=== PATIENT | female | born 2000 ===

== ENCOUNTER 2019-01-25 18:43 | Emergency (ER) | payer SELFPAY ==
[2019-01-25 18:56] VITALS: BMI 29.2
[2019-01-25 18:58] VITALS: RESP 20; O2SAT 100
--- NOTE | 2019-01-25 20:43 | C.PDOC ---
History Of Present Illness 18 y/o female c/o epigastric pain after vomiting today orange juice. pt sts she has had some diarrhea over last 2 days. had subjective fever. pt's younger sister with same. no recent travel. Time Seen by Provider: 01/25/19 19:55 Chief Complaint (Nursing): GI Problem History Per: Patient History/Exam Limitations: no limitations Onset/Duration Of Symptoms: Days (2) Current Symptoms Are (Timing): Still Present Severity: Mild Location Of Pain/Discomfort: Epigastric Radiation Of Pain To:: None Quality Of Discomfort: "Pain" Associated Symptoms: Fever (subjective), Vomiting, Diarrhea Last Bowel Movement: Today Last Menstral Period: 12/30/18 Past Medical History Reviewed: Historical Data, Nursing Documentation, Vital Signs Vital Signs: Last Vital Signs Temp 98.5 F 01/25/19 18:56 Pulse 101 H 01/25/19 18:56 Resp 20 01/25/19 18:56 BP 122/83 01/25/19 18:56 Pulse Ox 100 01/25/19 18:56 - Medical History PMH: Asthma, Gastritis Surgical History: No Surg Hx Family History: States: Unknown Family Hx - Social History Hx Alcohol Use: No Hx Substance Use: No - Immunization History Hx Tetanus Toxoid Vaccination: No Hx Influenza Vaccination: No Hx Pneumococcal Vaccination: No Review Of Systems Constitutional: Positive for: Fever (subjective) ENT: Negative for: Throat Pain Cardiovascular: Negative for: Chest Pain Respiratory: Negative for: Cough Gastrointestinal: Positive for: Vomiting, Abdominal Pain, Diarrhea. Negative for: Nausea Genitourinary: Negative for: Dysuria, Vaginal Bleeding Musculoskeletal: Negative for: Back Pain Physical Exam - Physical Exam Appears: Non-toxic, No Acute Distress Skin: Warm, Dry Head: Atraumatic, Normacephalic Eye(s): bilateral: Normal Inspection Neck: Supple Chest: No Tenderness Cardiovascular: Rhythm Regular, No Murmur Respiratory: No Decreased Breath Sounds, No Accessory Muscle Use, No Rales, No Rhonchi, No Wheezing Gastrointestinal/Abdominal: Bowel Sounds, Soft, Tenderness (mild. epigastric area), No Distention, No Guarding, No Rebound Back: No CVA Tenderness Neurological/Psych: Oriented x3, Normal Speech, Normal Cognition ED Course And Treatment O2 Sat by Pulse Oximetry: 100 Medical Decision Making Medical Decision Making: mild epigastric pain with 2 days vomiting and diarrhea. mucosa moist. poc, Maalox. po challenge. pt vomitied after po challenge. zofran given. no tolerates po fluids. reports abdominal pain resolved. re=-exam- soft,. nd, nt. d/c hoe with zofran Disposition Counseled Patient/Family Regarding: Studies Performed, Diagnosis, Need For Followup, Rx Given - Disposition Referrals: [facility] [Outside] [facility] [Outside] Disposition: HOME/ ROUTINE Disposition Time: 21:51 Condition: GOOD Additional Instructions: Tracey agua aumentada y otros fluidos david. Come arroz simple, pur de manzana. Brindis. galletas con hambre. Girard ondansetrn antes de las comidas si tiene nauseas. Seguimiento en la clnica en pocos pemberton. Drink increased water and other clear fluids. Eat plain rice, applesauce. toast. crackers if hungry. Take ondansetron before meals if nauseous. FOllow up in clinic in a few days. Prescriptions: Ondansetron ODT [Zofran ODT] 4 mg PO TID #12 odt Instructions: Viral Gastroenteritis, Child (DC) Forms: Gen Discharge Inst [place], [employer] [facility] ([facility]riac), School Excuse - Clinical Impression Clinical Impression: Gastroenteritis
[2019-01-25] MEDS ORDERED: Aluminum Hydroxide/Magnesium Hydroxide Susp (30 mL) ONE (20:49)
[2019-01-25] MEDS: Aluminum Hydroxide/Magnesium Hydroxide Susp (30 mL) PO STA (20:50)
[2019-01-25 21:54] VITALS: BP 112/76; PULSE 90; TEMP 99
== END 2019-01-25 22:11 | disposition home or self-care (01) ==
LOC: C.ER 18:43
DX: K52.9 Noninfective gastroenteritis and colitis, unspecified (principal)